=== PATIENT | female | born 1960 | race Caucasian/White ===

== ENCOUNTER 2019-02-27 01:23 | Outpatient (CLI) | payer BC ==
[~2019-02-27 01:23] MED LIST: ASPI-1265 PO; ATOR20TA PO; BENA20TA82 PO; CANA300T PO; CARV-50 PO; CLOP75TA35 PO; ESTR0.6261 PO; FEXO180T PO; FLUO20CA39 PO; FLUT16SP9; IMD30T PO; INSU100I13 SQ; LANTUS SQ; LEVO500T2 PO; PANT40TA39 PO
== END 2019-02-27 23:59 | disposition home or self-care (01) ==
LOC: DIABETIC 01:23
PROVIDERS: ATTEND Specialist
DX: E11.9 Type 2 diabetes mellitus without complications (principal); I10 Essential (primary) hypertension; J45.909 Unspecified asthma, uncomplicated; M19.90 Unspecified osteoarthritis, unspecified site; Z88.2 Allergy status to sulfonamides; Z88.5 Allergy status to narcotic agent; Z91.040 Latex allergy status; Z88.8 Allergy status to other drugs, medicaments and biological substances
CPT/HCPCS: G0108

== ENCOUNTER 2019-05-06 00:22 | Outpatient (CLI) | payer BC | END 2019-05-06 23:59 | disposition home or self-care (01) | LOC: DIABETIC 00:22 | PROVIDERS: ATTEND Specialist | DX: E11.9 Type 2 diabetes mellitus without complications (principal) | CPT/HCPCS: G0108 ==

== ENCOUNTER 2020-07-07 09:14 | Day surgery (SDC) | payer BC ==
[2020-07-05 10:13] LABS: BASOPHILS # (AUTO) 0.1 X10'3 (0-0.2); BASOPHILS % (AUTO) 1.3 % (0-1); EOSINOPHILS # (AUTO) 0.6 X10'3 (0-0.9); HEMATOCRIT 42.9 % (35.0-45.0); HEMOGLOBIN 14.3 g/dl (12.0-16.0); LYMPHOCYTES # (AUTO) 1.7 X10'3 (1.1-4.8); LYMPHOCYTES % (AUTO) 25.7 % (21-51); MEAN CORPUSCULAR HEMOGLOBIN 29.5 PG (27.0-31.0); MEAN CORPUSCULAR HGB CONC 33.4 g/dL (33.0-36.5); MEAN CORPUSCULAR VOLUME 88.3 FL (78-98); MEAN PLATELET VOLUME 7.8 FL (7.4-10.4); MONOCYTES # (AUTO) 0.6 X10'3 (0-0.9); MONOCYTES % (AUTO) 8.5 % (2-12); NEUTROPHILS # (AUTO) 3.7 X10'3 (1.8-7.7); NEUTROPHILS % (AUTO) 55.5 % (42-75); PLATELET COUNT 203 X10'3 (140-440); RED BLOOD COUNT 4.85 X10'6 (4.20-5.60); RED CELL DISTRIBUTION WIDTH 13.4 % (11.5-14.5); WHITE BLOOD COUNT 6.7 X10'3 (4.5-11.0)
[2020-07-05 10:24] LABS: ALBUMIN 3.7 G/DL (3.4-5.0); ANION GAP 10 (8-16); BLOOD UREA NITROGEN 18 MG/DL (7-18); BUN/CREATININE RATIO 20.7 (6.6-38.0); CALCIUM 9.4 MG/DL (8.5-10.1); CHLORIDE 102 MMOL/L (99-107); CREATININE 0.87 MG/DL (0.40-0.90); GLUCOSE 155 MG/DL (70-104); POTASSIUM 4.6 MMOL/L (3.5-5.1); SODIUM 139 MMOL/L (135-145); TOTAL CARBON DIOXIDE 26.6 MMOL/L (24-32); eGFR 67 ML/MIN
[2020-07-05 10:25] LABS: PARTIAL THROMBOPLASTIN TIME 25 SECONDS (22-32)
[~2020-07-07] VITALS: Ht 160 cm; Wt 124.8 kg
[2020-07-07] VITALS (11 sets, daily range): BP systolic 140–160; BP diastolic 61–125
[~2020-07-07 09:14] MED LIST changes: +CLOP75TA34 PO; -CLOP75TA35 PO
[2020-07-07] MEDS ORDERED: EVOL140P3 SQ (09:49)
[2020-07-07] MEDS ORDERED: INSU300I3 (09:49)
[2020-07-07] MEDS ORDERED: NITR0.4T51 (09:49)
[2020-07-07] MEDS ORDERED: DULA1.5P SQ (09:49)
[2020-07-07] MEDS ORDERED: CLOP75TA33 PO (09:50)
[2020-07-07] MEDS ORDERED: LORazepam 0.5 MG tablet PO PRN (09:55)
[2020-07-07] MEDS ORDERED: diphenhydrAMINE 25mg capsule PO PRN (09:55)
[2020-07-07] MEDS ORDERED: normal saline 1,000 ML IV SCH (09:55)
[2020-07-07] MEDS ORDERED: LIDOcaine/PRILOcaine 5gm cream TP ONE (09:55)
[2020-07-07] MEDS ORDERED: verapamil 2.5 mg/ml inj IV ONE (12:22)
[2020-07-07] MEDS ORDERED: heparin 1,000unit/ml 10ml vial 10 ML ONE (12:23)
[2020-07-07] MEDS ORDERED: iohexol 350MG/ML 100ml bottle IV ONE (12:23)
[2020-07-07] MEDS ORDERED: nitroGLYCERIN-Tridil 50MG/D5W 250 ML IV ONE (12:23)
[2020-07-07] MEDS ORDERED: midazolam 1 mg/ML 2ml injection ONE (12:23)
[2020-07-07] MEDS ORDERED: iohexol 350 MG/ML 50ML vial IV ONE (12:23)
[2020-07-07] MEDS ORDERED: LIDOcaine 1% (10mg/ml)w/preservative injection 20ml MDV ONE (12:23)
[2020-07-07] MEDS ORDERED: fentaNYL/PF 50MCG/1 ML 2ML syringe ONE (12:24)
[2020-07-07] MEDS ORDERED: HYDROcodone/acetaminophen 5mg/325mg tablet PO PRN (13:45)
[2020-07-07] MEDS ORDERED: HYDROcodone/acetaminophen 10/325mg tab PO PRN (13:45)
== END 2020-07-07 19:00 | disposition home or self-care (01) ==
LOC: SSTAY O 09:14
PROVIDERS: ATTEND Internal Medicine Cardiovascular Disease
DX: R94.39 Abnormal result of other cardiovascular function study (principal); I25.10 Atherosclerotic heart disease of native coronary artery without angina pectoris; E11.9 Type 2 diabetes mellitus without complications; I10 Essential (primary) hypertension; E78.5 Hyperlipidemia, unspecified; E66.9 Obesity, unspecified; E66.3 Overweight; Z79.4 Long term (current) use of insulin; F32.9 Major depressive disorder, single episode, unspecified; Z98.890 Other specified postprocedural states; Z90.710 Acquired absence of both cervix and uterus; Z79.899 Other long term (current) drug therapy; Z95.5 Presence of coronary angioplasty implant and graft; Z91.041 Radiographic dye allergy status; Z91.040 Latex allergy status; Z88.6 Allergy status to analgesic agent; Z88.8 Allergy status to other drugs, medicaments and biological substances
CPT/HCPCS: 36415; 80048; 82948; 85025; 85610; 85730; 93005; 93458; 99152; 99153; C1769; C1894; J1644; J2001; J2250; J3010; J7030; Q0163; Q9967; A4620; J3490